=== PATIENT | male | born 1940 | race Two or more races ===

== ENCOUNTER 2018-03-08 05:41 | Day surgery (SDC) | payer MEDICARE, MEDICAID ==
--- NOTE | 2018-03-06 10:23 | Pre-Procedure Note/Attestation ---
Pre-Procedure Note/Attestation Complete Prior to Procedure Planned Procedure: left Procedure Narrative: pars plana vitrectomy with endolaser, os Indications for Procedure Pre-Operative Diagnosis: vitreous hemorrhage, os Attestation I attest that I discussed the nature of the procedure; its benefits; risks and complications; and alternatives (and the risks and benefits of such alternatives ), prior to the procedure, with the patient (or the patient's legal enrollment eligibility representative). I attest that, if there was a reasonable possibility of needing a blood transfusion, the patient (or the patient's legal enrollment eligibility representative) was given the [facility] standardized written summary, pursuant to the [place] Blood Safety Act ([place] Health and Safety Code # 1645, as amended). I attest that I re-evaluated the patient just prior to the surgery and that there has been no change in the patient's H&P, except as documented below: Goldy Valenzuela MD Mar 06, 2018 10:23
--- NOTE | 2018-03-06 11:11 | Opthalmology H&P ---
Ophthalmology H&P H&P Chief Complaint: decreased vision in left eye HPI Vision Affects Ability to: read, focus/use eyes together, manage personal affairs HPI Narrative blurry vision Exam Visual Acuity: OD; 20/160 OS;CF Tension: OD;19 OS;20 Eye Exam: normal OU: external exam, palpebral fissure-width, marginal reflex distance, levator function, corneas, anterior chambers; findings: lens, fundus exam - VITREOUS HEME OS Assessment/Plan Diagnosis: (1) Vitreous hemorrhage of left eye Treatment Plan: other - PARS PLANA VITRECTOMY WITH POSSIBLE ENDOLASER, OS Goals of Treatment: improvement of vision, enhance quality of life Attestation Attestation The risks and benefits of the surgery as well as alternative procedures were explained to the patient in detail. Goldy Valenzuela MD Mar 06, 2018 11:10
[2018-03-08] VITALS (8 sets, daily range): BP systolic 112–156; BP diastolic 76–92
[~2018-03-08] VITALS: Ht 174 cm; Wt 95.3 kg
[2018-03-08] MEDS ORDERED: Tetracaine 0.5% Opth 4ml Soln LEFT EYE ONE (07:00)
[2018-03-08] MEDS: Phenylephrine 10% Opth Soln 5ml LEFT EYE SCH ×3 (07:00→07:27)
[2018-03-08] MEDS ORDERED: Proparacaine 0.5% Opth Soln 15ml LEFT EYE ONE (07:00)
[2018-03-08] MEDS ORDERED: Akten 3.5% 1ml Btl LEFT EYE ONE (07:00)
[2018-03-08] MEDS: Tropicamide 1% Opth 15ml Soln LEFT EYE SCH ×3 (07:01→07:27)
[2018-03-08] MEDS: Diclofenac Sod 0.1% Op Soln LEFT EYE SCH ×3 (07:02→07:28)
[2018-03-08] MEDS: Cyclopentolate 1% Opth Sol 2ml LEFT EYE SCH ×3 (07:02→07:27)
[2018-03-08] MEDS: Tobramycin Op Soln 0.3% 5ml LEFT EYE SCH ×3 (07:03→07:28)
[2018-03-08] MEDS ORDERED: Kenalog-40 1ml Vial ONE (07:10)
[2018-03-08] MEDS ORDERED: Kenalog-10 5ml Inj ONE (07:10)
[2018-03-08] MEDS ORDERED: EPINEPHrine 1mg/1ml Amp ONE (07:10)
[2018-03-08] MEDS ORDERED: Lidocaine 2% MPF 5ml Vial INJ ONE (07:10)
[2018-03-08] MEDS ORDERED: BSS 500ml btl ONE (07:11)
[2018-03-08] MEDS ORDERED: BSS 15ml BTL ONE (07:11)
[2018-03-08] MEDS ORDERED: Povidone-Iodine 5% opth solution ONE (07:11)
[2018-03-08] MEDS ORDERED: Bupivacaine 0.75% 30ml vial INJ ONE (07:12)
[2018-03-08] MEDS ORDERED: Propofol 200mg/20ml IV ONE (07:32)
[2018-03-08] MEDS ORDERED: fentaNYL 100 mcg/2 mL IV ONE (07:32)
[2018-03-08] MEDS ORDERED: Midazolam 2mg/2ml Inj ONE (07:32)
[2018-03-08] MEDS ORDERED: LR 1000ml 1,000 ML IVLG SCH (07:58)
--- NOTE | 2018-03-08 07:58 | Anethesia Preoperative Eval ---
Anesthesia Pre-op PMH/ROS General Date of Evaluation: Mar 08, 2018 Time of Evaluation: 07:40 Anesthesiologist: aspen ASA Score: ASA 3 Mallampati Score Class I : Soft palate, uvula, fauces, pillars visible Class II: Soft palate, uvula, fauces visible Class III: Soft palate, base of uvula visible Class IV: Only hard plate visible Mallampati Classification: Class II Surgeon: Bianca Diagnosis: L eye vitreous hemmorrhage Surgical Procedure: L eye PPV Anesthesia History: none Family History: no anesthesia problems Allergies: Coded Allergies: No Known Allergies (Unverified , 03/05/18) Medications: see eMAR Patient NPO?: Yes Past Medical History Cardiovascular: Reports: HTN, valve dz - s/p aortic valve replacement, arrhythmia - Chronic AF Pulmonary: Denies: asthma, COPD, JOYCE, other Gastrointestinal/Genitourinary: Reports: GERD; Denies: CRI, ESRD, other Neurologic/Psychiatric: Denies: dementia, CVA, depression/anxiety, TIA, other Endocrine: Denies: DM, hypothyroidism, steroids, other HEENT: Reports: cataract (L), cataract (R); Denies: glaucoma, SQUAXIN (L), SQUAXIN (R), other Hematology/Immune: Reports: bleeding disorder - anticoagulated; Denies: anemia, DVT, other Musculoskeletal/Integumentary: Reports: DJD; Denies: OA, RA, DDD, edema, other Other: other - overweight PMH Narrative: as above PSxH Narrative: see H&P Anesthesia Pre-op Phys. Exam Physician Exam Constitutional: NAD Neurologic: CN 2-12 intact Cardiovascular: no M/R/G, other - IIR Respiratory: CTA Gastrointestinal: other - obesity Airway Exam Mallampati Score: Class II MO: limited Neck: stiff ROM: limited Teeth: missing Dentures: no upper, no lower Anesthesia Pre-op A/P Labs see chart Studies Pre-op Studies: EKG - AF Risk Assessment & Plan Assessment: ASA3 Plan: MAC with retrobulbar block Status Change Before Surgery: No Pre-Antibiotics Drug: none Kayden Corrigan MD Mar 08, 2018 07:58
[2018-03-08] MEDS ORDERED: NS Irrig 1000ml ONE (08:00)
[2018-03-08] MEDS ORDERED: Maxitrol Opth Oint 3.5gm ONE (08:00)
[2018-03-08] MEDS ORDERED: Pred Forte 1% Opth Susp 1ml ONE (08:00)
[2018-03-08] MEDS ORDERED: Sterile Water Irrig 1000ml IRRIG ONE (08:00)
[2018-03-08] MEDS ORDERED: fentaNYL 100 mcg/2 mL IV PRN (08:00)
[2018-03-08] MEDS ORDERED: Pilocarpine 2% Opth 15ml Soln ONE (08:00)
[2018-03-08] MEDS ORDERED: Dexamethasone 4mg/ml vial ONE (08:00)
[2018-03-08] MEDS ORDERED: LR 1000ml ONE (08:00)
[2018-03-08] MEDS ORDERED: Sodium Hyaluronate 10 mg/ml 0.85ml ONE (08:22)
--- NOTE | 2018-03-08 09:50 | Immediate Post-Op Evaluation ---
Immediate Post-Op Evalulation Immediate Post-Op Evalulation Procedure: L eye PPV Date of Evaluation: Mar 08, 2018 Time of Evaluation: 09:07 IV Fluids: 300 Blood Products: none Estimated Blood Loss: none Urinary Output: none Blood Pressure Systolic: 132 Blood Pressure Diastolic: 74 Pulse Rate: 86 Respiratory Rate: 20 O2 Sat by Pulse Oximetry: 99 Temperature (Fahrenheit): 97.4 Pain Score (1-10): 1 Nausea: No Vomiting: No Complications none Patient Status: awake, patent, none Hydration Status: adequate Kayden Corrigan MD Mar 08, 2018 09:50
--- NOTE | 2018-03-08 09:51 | 48 Hour Post Anesthesia Eval ---
Post Anesthesia Evaluation Procedure: L eye PPV Date of Evaluation: Mar 08, 2018 Time of Evaluation: 09:50 Blood Pressure Systolic: 128 0: 75 Pulse Rate: 84 Respiratory Rate: 20 Temperature (Fahrenheit): 97.6 O2 Sat by Pulse Oximetry: 98 Airway: patent Nausea: No Vomiting: No Pain Intensity: 1 Hydration Status: adequate Cardiopulmonary Status: stable Mental Status/LOC: patient returned to baseline Follow-up Care/Observations: n/a Post-Anesthesia Complications: none Follow-up care needed: ready to discharge Kayden Corrigan MD Mar 08, 2018 09:51
[2018-03-08] MEDS ORDERED: WARFARIN SODIU7.5 MG ORAL (13:18)
[2018-03-08] MEDS ORDERED: ATORVASTATIN CA20 MG ORAL (13:19)
[2018-03-08] MEDS ORDERED: METOPROLOL TART50 MG ORAL (13:19)
[2018-03-08] MEDS ORDERED: LISINOPRIL5 MG ORAL (13:20)
[2018-03-08] MEDS ORDERED: TAMSULOSIN HCL0.4 MG ORAL (13:20)
[2018-03-08] MEDS ORDERED: CARBAMAZEPINE200 MG ORAL (13:21)
[2018-03-08] MEDS ORDERED: OMEPRAZOLE20 M2 ORAL (13:22)
--- NOTE | 2018-03-09 12:36 | Brief Operative Note ---
Immediate Post Operative Note Operative Note Chief Complaint: blurry vision Pre-op Diagnosis: vitreous hemorrhage, os Procedure: pars plan vitrectomy with endolaser, OS Post-op Diagnosis: Vitreous hemorrhage, OS Post-op Diagnosis: same as pre-op Findings: consistent w/pre-op dx studies Surgeon: Bianca Anesthesiologist: Shekhar Anesthesia: MAC Specimen: none Complications: none Condition: stable Fluids: LR Estimated Blood Loss: none Drains: none Implant(s) used?: No Goldy Valenzuela MD Mar 09, 2018 12:36
--- NOTE | 2018-03-09 14:12 | Operative Note - PDOC ---
Operative Note Operative Note Date of Operation/Procedure: Mar 08, 2018 Chief Complaint: blurry vision Pre-op Diagnosis: vitreous hemorrhage, os Procedure: pars plan vitrectomy with endolaser, OS Post-op Diagnosis: Vitreous hemorrhage, OS Post-op Diagnosis: same as pre-op Operative Findings: consistent w/pre-op dx studies Surgeon: Bianca Anesthesiologist: Shekhar Anesthesia: MAC Specimen: none Complications: none Condition: stable Fluids: LR Estimated Blood Loss: none Drains: none Implant(s) used?: No Indications for Procedure vitreous hemorrahage, Description of Procedure This patient has been complaining visually significant decrease in vision and seeing red in the affected eye . The patient complains of difficulties in performing activities of daily living and wants to manage personal affairs with comfort and accuracy and see well enough to move with safety at home and outdoors. The risks, benefits and alternatives of the procedure were discussed with the patient in the office prior to scheduling surgery. All questions from the patient were answered after the surgical procedure was explained in detail. The risks of the procedure as explained to the patient include, but are not limited to, pain, infection, bleeding, loss of vision, retinal detachment, need for further surgery, double vision, etc. Alternative procedures were discussed which include, to do nothing or seek a second opinion. Informed consent for this procedure was obtained from the patient. The patient was referred to a primary care physician for a cardiopulmonary clearance prior to surgery, after proper evaluation was done patient was properly scheduled for outpatient surgery. The patient was brought to the operating room where the anesthesiologist established I.V. lines and cardiac monitoring leads. The patient was then prepped and draped in typical sterile fashion for ophthalmic surgery An G 23 trocar infusion cannula was inserted in the inferotemporal quadrant, approximately 4 mm posterior to the limbus.The infusion cannula was confirmed to be in appropriate position prior to initiating infusion The light pipe and the vitrector were inserted into the eye and a core vitrectomy was performed under wide field visualization.Therefore, the vitrectomy instrument was used to engage the posterior vitreous hemorrhage. Once this was done, the posterior heme was dissected using the vitrectomy instrument.. Vitreous dissection was then extended out to the periphery as far as safely possible. Endolaser photocoagulation was then applied.Good reaction was achieved. After adequate laser application was completed, indirect ophthalmoscopy was performed The trocar was then removed. After this was done, all the wounds were reinspected, confirmed to be well sealed and the eye had an appropriate intraocular pressure.~ ~ Antibiotic ointment was then placed in the eye.~ Then, the eye was patched in typical fashion for ophthalmologic surgery. The patient tolerated the procedure well and was transferred to the recovery room in good condition.~ Proper postoperative management was reviewed with the patient prior to discharge and advised to follow up the next day.. Goldy Valenzuela MD Mar 09, 2018 14:12
== END 2018-03-08 10:30 | disposition home or self-care (01) ==
LOC: SUR 05:41
DX: H43.12 Vitreous hemorrhage, left eye (principal); I10 Essential (primary) hypertension; N40.0 Benign prostatic hyperplasia without lower urinary tract symptoms; E78.5 Hyperlipidemia, unspecified; I48.91 Unspecified atrial fibrillation; K21.9 Gastro-esophageal reflux disease without esophagitis; M19.90 Unspecified osteoarthritis, unspecified site; E66.3 Overweight
CPT/HCPCS: 67039; J0171; J1100; J2250; J2704; J3010; J3470; J3490; 94003; 94150